=== PATIENT | male | born 1985 | race Caucasian/White ===

== ENCOUNTER 2018-05-10 11:12 | Observation (INO) ==
[2018-05-10] MEDS ORDERED: Lidocaine PF 1% Inj 5 ML Syringe INFILTRATN ONE (12:00)
--- NOTE | 2018-05-10 14:39 | ED ---
HPI General Chief complaint: Skin/Abscess/Foreign Body Stated complaint: Fob/poss steak stuck in throat x last night Time Seen by Provider: 05/10/18 11:31 History of Present Illness HPI narrative: 32-year-old male here for evaluation of food impaction. Patient had the piece of steak stuck in her throat since yesterday at 5 PM. He tried drinking chasidy maría other than the jumping up and down was no help, she had no fevers chills, vomiting every time he tries to drink something. Related Data Home Medications Medication Instructions Recorded Confirmed No Known Home Medications 05/10/18 05/10/18 Allergies Allergy/AdvReac Type Severity Reaction Status Date / Time No Known Allergies Allergy Unverified 05/10/18 11:26 Review of Systems ROS: all other systems reviewed are negative ON LICENSE OF [facility] Medical History Medical History Patient denies medical problems (Acute) Surgical History Surgical History History of nasal surgery (Acute) Hx of knee surgery (Acute) Social History Social History Substance History: No History of Abuse Second Hand Smoke Exposure: No Smoking Status: Never smoker How Often Do You Have a Drink Containing Alcohol: Monthly or less Immunization History Tetanus Immunization: >5 Years Hx Influenza Vaccine This Season: No Exam Narrative Exam Narrative: GENERAL: Alert oriented 3 no acute distress. SKIN: Focused skin assessment warm/dry. HEAD: Atraumatic. Normocephalic. EYES: Pupils equal and round. No scleral icterus. No injection or drainage. ENT: No nasal bleeding or discharge. Mucous membranes pink and moist. NECK: Trachea midline. No JVD. CARDIOVASCULAR: Regular rate and rhythm. No murmur appreciated. RESPIRATORY: No accessory muscle use. Clear to auscultation. Breath sounds equal bilaterally. GASTROINTESTINAL: Abdomen soft, non-tender, nondistended. Hepatic and splenic margins not palpable. MUSCULOSKELETAL: No obvious deformities. No clubbing. No cyanosis. No edema. NEUROLOGICAL: Awake and alert. No obvious cranial nerve deficits. Motor grossly within normal limits. Normal speech. PSYCHIATRIC: Appropriate mood and affect; insight and judgment normal. Course Initial Documented Vital Signs Temperature 97.6 F 05/10/18 11:22 Pulse Rate 76 05/10/18 11:22 Respiratory Rate 16 05/10/18 11:22 Blood Pressure 141/84 H 05/10/18 11:22 Pulse Oximetry 98 05/10/18 11:22 Last Documented Vital Signs Temperature 97.6 F 05/10/18 11:22 Pulse Rate 70 05/10/18 14:01 Respiratory Rate 18 05/10/18 14:01 Blood Pressure 140/67 05/10/18 14:01 Pulse Oximetry 98 05/10/18 14:01 Medical Decision Making MDM Narrative Medical decision making narrative: 32-year-old male here for evaluation of food impaction. Patient had positive barium study. Dr. Love activity the patient and he is going to go under endoscopy. Disposition after the procedure by Dr. Love. Discharge Plan Physicians Team ED Provider: Rene Mulligan Primary Care Provider: Primary Care Donita Mena Attending Provider: Allen Love Rxs /Orders / Referrals /Forms Prescriptions: No Action No Known Home Medications RF: 0 Discharge Interventions Interventions: Vital Signs Last Done: 05/10/18 14:01 Status ED Status: Ready for Discharge
--- NOTE | 2018-05-10 14:51 | FL ---
EXAM DATE: 05/10/2018 1:52 PM EDT AGE/SEX: 32 years / Male INDICATIONS: Patient states that he has piece of steak lodged in throat since last night. CLINICAL DATA: This is the patient's initial encounter. Patient reports that signs and symptoms have been present for 1 day and indicates a pain score of 4/10. MEDICAL/SURGICAL HISTORY: None. None. COMPARISON: No prior exams available for comparison. FLUORO TIME: 1.3 IMAGE COUNT: 15 FINDINGS: Patient initially was given a small amount of Gastrografin but was unable to swallow it without vomit ing. Patient was subsequently given thin barium. The hypopharynx and upper and mid esophagus appear n ormal. At the junction between the mid and distal esophagus, there is an abrupt obstruction. The handy ent has a history of pain and inability to swallow developing while eating steak. The obstruction is almost certainly a piece of steak in the distal esophagus. No contrast was seen to extend beyond the obstruction. CONCLUSION: Suspected obstructing foreign material in the distal esophagus. Electronically signed by: Juan Carlos Rae MD 05/10/2018 2:50 PM EDT
[2018-05-10] MEDS ORDERED: fentaNYL Citrate Inj 100 MCG/2 ML Ampul ONE (15:31)
--- NOTE | 2018-05-10 15:38 | P.CONGI ---
History of Present Illness Consult date: 05/10/18 Consult reason: Food bolus impaction Chief complaint: Food impaction History of Present Illness: Patient is a healthy 32-year-old gentleman who was eating steak last night and felt a piece of steak get stuck he has been unable to pass it or swallow since then he reports a prior episode about a year ago where he had dysphagia with a food bolus getting stuck but at that point in time it passed by itself he denies any heartburn or reflux he uses health supplements for the gym but otherwise he takes no medications and he is healthy otherwise Review of Systems All other systems reviewed negative except as stated in HPI PMFSH - History History Provided By: Patient - Medical History Medical History: Medical History (Last Updated 05/10/18 @ 11:49 by Consuelo Reed RN) Patient denies medical problems - Surgical History Surgical History: Surgical History (Last Updated 05/10/18 @ 11:49 by Consuelo Reed RN) History of nasal surgery Hx of knee surgery - Tobacco History Second Hand Smoke Exposure: No Tobacco Use In Past 30 Days: No Smoking Status: Never smoker - Alcohol History How Often Do You Have a Drink Containing Alcohol: Monthly or less - Substance Use History Substance History: No History of Abuse - Immunization History Tetanus Immunization: >5 Years Hx Influenza Vaccine This Season: No Medications and Allergies Allergies Allergy/AdvReac Type Severity Reaction Status Date / Time No Known Allergies Allergy Unverified 05/10/18 11:26 Home Medications Medication Instructions Recorded Confirmed Type No Known Home Medications 05/10/18 05/10/18 History Exam Vital signs: Vital Signs 05/10/18 11:22 05/10/18 11:25 05/10/18 14:01 Temperature 97.6 F Pulse Rate 76 68 70 Respiratory Rate 16 18 18 Blood Pressure 141/84 H 120/82 140/67 Pulse Oximetry 98 96 98 Intake & Output 05/09/18 05/10/18 05/10/18 18:59 06:59 18:59 Weight 100 kg Other: Weight On Admission 100 kg - Constitutional no acute distress - Routine HEENT Exam Head: Present: normocephalic, atraumatic Eye: Present: EOMI, PERRL ENT: Present: mucous membranes moist - Routine Neck Exam Present: supple - Routine Chest/Breast/Axilla Exam Chest wall: Absent: tenderness - Routine Respiratory Exam Present: CTA bilaterally - Routine Cardiovascular Exam Present: RRR, S1, S2 - Routine Abdominal Exam Present: soft, normoactive bowel sounds. Absent: tenderness, distended - Routine Extremities Exam Absent: cyanosis, clubbing, edema - Routine Skin Exam Present: intact - Routine Neurological Exam Present: alert, oriented X3 - Routine Psychiatric Exam Present: normal affect Results - Imaging Impressions Barium Swallow X-Ray 05/10/18 12:36 CONCLUSION: Suspected obstructing foreign material in the distal esophagus. Assessment and Plan - Plan Food bolus impaction We will proceed with an upper endoscopy Further recommendations she will depend on findings
--- NOTE | 2018-05-10 16:10 | P.PCN ---
Date of procedure: 05/10/18 Pre-op diagnosis: Food bolus impaction Procedure: PROCEDURE PERFORMED EGD with food bolus impaction and biopsy and dilation of the esophagus over a guidewire with a savory dilator INDICATION FOR PROCEDURE Food bolus impaction PROCEDURE: The procedure, risks and benefits were discussed with Patient/POA and informed consent was obtained. Anesthesia sedated Patient with Diprivan. Patient was placed in the left lateral decubitus position. EGD: The Pentax videoscope was introduced through the oropharynx and advanced to the second portion of the duodenum under direct visualization. Retroflexion was performed in the stomach. FINDINGS: The esophagus there was a large piece of meat stuck at the distal end of the esophagus initially we took out portions of it with a rough net then we were able to remove the rest with a tripod following removal it was noted that the patient had mild stricturing of the esophagus which was otherwise unremarkable therefore we used the savory dilator size 16 mm over a guidewire postdilatation view revealed a lengthy rent of the mid to distal portion of the esophagus but no perforations noted therefore biopsies were taken from the distal esophagus to rule out the possibility of eosinophilic esophagitis The stomach this was unremarkable The duodenum this was unremarkable ESTIMATED BLOOD LOSS: None SPECIMENS REMOVED: Esophageal biopsies COMPLICATIONS: None IMPRESSION: Food bolus impaction Esophageal stricture PLAN: Await biopsies Okay to discharge home when criteria is met Follow-up with GI in 3 weeks Chew food well Anesthesia: MIRELA Surgeon: Allen Love Condition: stable Disposition: PACU (Okay for discharge after criteria is met)
== END 2018-05-10 16:45 | disposition home or self-care (01) ==
LOC: PHEDA 11:12 → PHED 11:12 → PHEDA 14:35
PROVIDERS: ADMIT Internal Medicine Gastroenterology; ATTEND Internal Medicine Gastroenterology
DX: K20.9 Esophagitis, unspecified; K22.2 Esophageal obstruction; T18.128A Food in esophagus causing other injury, initial encounter; R13.10 Dysphagia, unspecified